=== PATIENT | female | born 1990 | race Caucasian/White ===

== ENCOUNTER 2016-07-19 07:43 | Observation (INO) ==
[2016-07-19] MEDS ORDERED: Naloxone 0.4 MG/ML INJ IVP PRN ×3 (09:52→17:20)
[2016-07-19] MEDS ORDERED: Ondansetron 4 MG/2 ML VIAL IVP PRN ×3 (09:52→17:20)
[2016-07-19] MEDS ORDERED: cefOXitin 2,000 MG in D5% in Water (Mini-Bag+) 100 ML IVPB ONE ×2 (09:56→16:23)
[2016-07-19] MEDS ORDERED: *HR* HYDROmorphone (PF) 1 MG/ML SYRINGE IVP PRN ×4 (09:58→17:20)
[2016-07-19] MEDS ORDERED: *HR* OxyCODONE/APAP 5/325 TABLET PO PRN ×3 (09:58→17:20)
[2016-07-19] MEDS ORDERED: 0.9 % Sodium Chloride 1,000 ML IVC SCH ×2 (10:00→16:23)
--- NOTE | 2016-07-19 10:16 | Event Note ---
Date of Encounter: 07/19/16 Time of Encounter: 10:14 Patient is a direct admission for symptomatic cholelithiasis. Please see ECW History and Physical. Copy placed in the patients folder at the desk and a copy placed to be scanned into medical records.
[2016-07-19 10:17] LABS: Basophils # 0.1 K/mcL (0.0-0.2); Basophils % 0.7 %; Eosinophils # 0.3 K/mcL (0.0-0.6); Eosinophils % 3.7 %; Hematocrit 36.2 % (35.3-44.9); Hemoglobin 12.1 g/dL (11.5-15.4); Immature Granulocytes % 0.3 % (0-4); Lymphocytes # 2.4 K/mcL (0.6-4.6); Lymphocytes % 35.8 %; Mean Corpuscular HGB Conc 33.4 g/dL (31.6-35.5); Mean Corpuscular Hemoglobin 30.7 pg (28.0-33.3); Mean Corpuscular Volume 91.9 fL (83.0-100.0); Mean Platelet Volume 9.3 fL (9.4-12.4); Monocytes # 0.4 K/mcL (0.0-1.3); Monocytes % 6.4 %; Platelet Count 237 K/mcL (140-400); Red Blood Count 3.94 M/mcL (3.82-4.97); Segmented Neutrophils % 53.1 %
[2016-07-19 10:21] LABS: Neutrophils # 3.6 K/mcL (1.6-8.9)
[2016-07-19 10:30] LABS: Alanine Aminotransferase 24 Units/L (0-55); Albumin 3.3 g/dL (3.5-5.0); Albumin/Globulin Ratio 1.1 (1.1-2.2); Alkaline Phosphatase 40 Units/L (38-126); Aspartate Amino Transferase 28 Units/L (5-34); BUN/Creatinine Ratio 18 (6-26); Bilirubin,Total 0.3 mg/dL (0.2-1.2); Blood Urea Nitrogen 14 mg/dL (7-20); Calcium 8.5 mg/dL (8.6-10.8); Carbon Dioxide 26 mEq/L (19-29); Chloride 106 mEq/L (98-109); Globulin 3.1 g/dL (2.4-3.5); Glucose 85 mg/dL (70-99); Osmolality,Calculated 288 (280-300); Potassium 3.9 mEq/L (3.5-4.5); Sodium 139 mEq/L (136-145); Total Protein 6.4 g/dL (6.0-8.3); eGFR For African Americans > 60 (> 60); eGFR For Non-African Americans > 60 (> 60)
--- NOTE | 2016-07-19 14:07 | Anesthesia Evaluation PreOp ---
Date of Encounter: 07/19/16 Time of Encounter: 14:05 - Past History Planned Operation: lap dolores Cardiac History: Denies any Significant Hx Pulmonary History: Denies Any Significant HX BOBBIN SORTER History: Denies Any Significant HX Other Medical History: Denies Any Significant HX Anesthesia History: No Prior Anesthetic Complications, Past Anesthesia (ankle surgery and T&A) : No Test: Negative Alcohol Use: none Drug use: none Medications and Allergies Acetaminophen [Tylenol] 1,000 mg PO Q6HR PRN 07/19/16 [History] Dextroamphetamine/Amphetamine [Adderall Xr 30 mg Capsule] 30 mg PO DAILY [History] Allergies No Known Allergies Allergy (Verified 07/19/16 08:35) - Meds/Allergy Pre-op Review Medications Reviewed: Yes Allergies Reviewed: Yes Beta Blockers on Current Med List: No Anesthesia Results - Labs 07/19/16 10:09 07/19/16 10:09 Anesthesia Exam Selected Entries 07/19/16 11:55 Temperature 98.0 F Pulse Rate 63 Respiratory Rate 18 Blood Pressure 104/67 O2 Sat by Pulse Oximetry 97 Weight: 77kg NPO (# of Hours): >8 Pain Scale: 2 Pain Scale Used: Numeric (1 - 10) - HEENT Pupil (Motor): EOMI Mallampati: II Teeth: Normal (has permanent partial upper and lower front) Denture Type: Upper: Partial (permanent), Lower: Partial Oral Opening: Greater than 3 - BOBBIN SORTER LOC: Oriented BOBBIN SORTER Motor: Normal RUE, Normal LUE, Normal RLE, Normal LLE, Normal Face BOBBIN SORTER Sensory: Normal: RUE, LUE, RLE, LLE, Face - Cardiac Rhythm: Regular Murmur: None - Pulmonary Breath Sounds: bilateral Clear Respiratory Effort: Symmetrical Anesthesia Assess/Plan ASA Score: 1 Modified [place] Scale for Level of Consciousness: Cooperative, oriented, and tranquil Anesthetic Plan: General Monitoring Plan: Standard Monitors Recovery Plan: PACU (Discussed GA with patient, questions answered and agrees to proceed.)
[2016-07-19] MEDS ORDERED: *HR* Midazolam HCl 2 MG/2 ML VIAL ONE (14:38)
[2016-07-19] MEDS ORDERED: Lidocaine -MPF 2% 2 ML VIAL ONE (14:38)
[2016-07-19] MEDS ORDERED: *HR* Rocuronium Bromide 50 MG/5 ML VIAL ONE (14:38)
[2016-07-19] MEDS ORDERED: *HR* FentaNYL (PF) 100 MCG/2 ML VIAL ONE (14:38)
[2016-07-19] MEDS ORDERED: Ondansetron 4 MG/2 ML VIAL ONE (14:38)
[2016-07-19] MEDS ORDERED: *HR* Propofol 200 MG/20 ML VIAL IVP ONE (14:38)
[2016-07-19] MEDS ORDERED: Dexamethasone 4 MG/ML VIAL ONE (14:38)
[2016-07-19] MEDS ORDERED: *HR* Succinylcholine 200 MG/10 ML VIAL IVP ONE (14:38)
[2016-07-19] MEDS ORDERED: Neostigmine Methylsulfate 3 MG/3 ML SYRINGE ONE (14:38)
[2016-07-19] MEDS ORDERED: *HR* Promethazine 25 MG/ML VIAL IVP PRN (14:40)
[2016-07-19] MEDS ORDERED: *HR* HYDROmorphone 2 MG/ML SYRINGE ONE (15:00)
--- NOTE | 2016-07-19 15:45 | Operative Note ---
Date of procedure: 07/19/16 Pre-op diagnosis: Biliary colic Post-op diagnosis: same Procedure: Laparoscopic Cholecystectomy with cholangiogram Anesthesia: KENZIE Surgeon: Harsh Robert Estimated blood loss (cc): 5 Condition: stable Disposition: same day Procedure in Detail: After informed consent this patient was taken the operating room placed supine position. After adequate sedation anesthesia the abdomen was prepped and draped. A proper timeout was performed. Two towel clamps are placed at the umbilicus and a Veres needle was inserted into the abdomen. A 5 mm incision was made at the umbilicus. A 12 mm incision was made in the subxiphoid region. Two 5 mm incisions were made in the right upper quadrant that were 4 finger breadths and 6 finger breadths below the costal margin. The gallbladder was identified, retracted anteriorly and cephalad, and the infundibulum was skeletonized. The cystic duct was easily identified and was dissected free. A ductotomy was created in the cystic duct. A taut catheter was placed within the cystic duct and clipped. A cholangiogram was performed. Contrast filled the cystic duct, common hepatic duct, hepatic radicles, and the distal common bile duct. There was flow of contrast into the duodenum. Once this was confirmed the clippers removed, the taut catheter was removed as well, and the cystic duct was clipped distally. The cystic duct was then transected with scissors. The gallbladder was resected off the liver surface. There was excellent hemostasis. The gallbladder was then retrieved through the 12 mm cannula site. At this point the abdomen was suctioned dry and the pneumoperitoneum was then evacuated. All ports were removed. The 12 mm cannula site was closed with an 0 Vicryl suture in [id number] fashion. The skin was closed with 4-0 Vicryl suture. Dermabond was placed as well. All instrument counts and needle counts are correct in the operation. The patient tolerated the procedure well and was transferred to the PACU in stable condition.
--- NOTE | 2016-07-19 16:05 | Anesthesia Evaluation Post Op ---
Date of Encounter: 07/19/16 Time of Encounter: 16:05 - Vital Signs Vital Signs: Last Vital Signs Temp 97.9 F 07/19/16 15:55 Pulse 55 07/19/16 15:45 Resp 14 07/19/16 15:55 BP 107/68 07/19/16 15:55 Pulse Ox 96 07/19/16 15:55 - Lungs Lungs: Clear Ascult./Percussion - Airway Airway: Non-obstructed - Cardiovascular Regular Rate - Mental Status Mental Status: Alert & Oriented, Answers Appropriately - Pain Pain Scale: 3 - Nausea Vomiting Nausea Vomiting: Not Present - Hydration Hydration: NPO - Discharge PostOp Status: Transfer Patient to floor
--- NOTE | 2016-07-19 16:19 | Discharge Summary ---
Date of Encounter: 07/19/16 Time of Encounter: 16:16 - Discharge Diagnosis (1) Symptomatic cholelithiasis Priority: Primary Status: Resolved - Discharge Medications Prescriptions: OxyCODONE/APAP 5/325 [Percocet 5/325 MG] 1 each PO Q6HR PRN #30 tablet PRN Reason: Pain Docusate Sodium [Colace] 100 mg PO BID #30 capsule Home Medications: Acetaminophen [Tylenol] 1,000 mg PO Q6HR PRN 07/19/16 [History] Dextroamphetamine/Amphetamine [Adderall Xr 30 mg Capsule] 30 mg PO DAILY [History] Docusate Sodium [Colace] 100 mg PO BID #30 capsule 07/19/16 [Rx] OxyCODONE/APAP 5/325 [Percocet 5/325 MG] 1 each PO Q6HR PRN #30 tablet 07/19/16 [Rx] Allergies/Adverse Reactions: Allergies No Known Allergies Allergy (Verified 07/19/16 08:35) General Surgery Exam Initial Vital Signs Temp Pulse Resp BP Pulse Ox 97.8 F 64 18 100/63 98 07/19/16 09:23 07/19/16 09:23 07/19/16 09:23 07/19/16 09:23 07/19/16 09:23 Date of admission: 07/19/16 07:52 Primary care physician: Hussain Menendez, Discharging clinician: Harsh Berrios) Anticipated date of discharge: 07/19/16 - Patient Status Disposition: Home, Self-Care Condition: Good Overall status at discharge: patient is progressing back to baseline - Discharge Instructions Follow Up With: Hussain Menendez DO [Primary Care Provider] - Shanon Berrios CNP [Advanced Practice Nurse] - 08/06/16 10:45 am (Surgery follow-up) Additional Instructions: #1 may shower, no tub bath for 2 weeks #2 wash incisions with soap and water and pat dry daily #3 no lifting, pushing, pulling more than 15 pounds for the next 2 weeks #4 no driving until off narcotics for 24 hours and able to safely react in the car #5 may climb stairs - Diet and Activity Activity: other (See additional instructions above) Diet: advance to your usual diet - Hospital Course Hospital course: Ms. Georges is a 26 year old female presented to the hospital with complaints of abdominal pain. She has been seen and worked up by Dr. Robert as an outpatient for recurrent symptomatic cholelithiasis. She was admitted to the hospital for cholecystectomy with Dr. Robert. We will begin discharge planning to home when the patient meets criteria including vital signs are stable and afebrile, tolerating liquids without nausea or vomiting, pain is well-controlled , voiding and ambulating without difficulty. We will plan for outpatient follow -up in the next 10-14 days. - Time Spent with Patient Total time spent providing and/or coordinating discharge services: Less than 30 minutes Labs on day of discharge: Labs from last 24 hours 07/19/16 07/19/16 07/19/16 11:56 10:09 10:09 WBC RBC Hgb Hct MCV MCH MCHC RDW Plt Count MPV Immature Gran % Seg Neutrophils % Lymphocytes % Monocytes % Eosinophils % Basophils % Neutrophils # Lymphocytes # Monocytes # Eosinophils # Basophils # Sodium 139 Potassium 3.9 Chloride 106 Carbon Dioxide 26 BUN 14 Creatinine 0.77 Est GFR ( Amer) > 60 Est GFR (Non-Af Amer) > 60 BUN/Creatinine Ratio 18 Glucose 85 POC Glucose 89 Calculated Osmolality 288 Calcium 8.5 L Total Bilirubin 0.3 AST 28 ALT 24 Alkaline Phosphatase 40 Serum Total Protein 6.4 Albumin 3.3 L Globulin 3.1 Albumin/Globulin Ratio 1.1 Serum , Qual Negative 07/19/16 10:09 WBC 6.7 RBC 3.94 Hgb 12.1 Hct 36.2 MCV 91.9 MCH 30.7 MCHC 33.4 RDW 12.0 Plt Count 237 MPV 9.3 L Immature Gran % 0.3 Seg Neutrophils % 53.1 Lymphocytes % 35.8 Monocytes % 6.4 Eosinophils % 3.7 Basophils % 0.7 Neutrophils # 3.6 Lymphocytes # 2.4 Monocytes # 0.4 Eosinophils # 0.3 Basophils # 0.1 Sodium Potassium Chloride Carbon Dioxide BUN Creatinine Est GFR ( Amer) Est GFR (Non-Af Amer) BUN/Creatinine Ratio Glucose POC Glucose Calculated Osmolality Calcium Total Bilirubin AST ALT Alkaline Phosphatase Serum Total Protein Albumin Globulin Albumin/Globulin Ratio Serum , Qual - Impressions ITS Impressions Cholangiogram,Operative 07/19/16 00:00 IMPRESSION: Normal intraoperative cholangiogram. D/ / Ronnie Marcelino MD / Ronnie Marcelino MD Interpreting Provider: Ronnie Marcelino MD - Attending Attestation I examined this patient and my medical decision-making was reviewed with the DRY PRESS OPERATOR HELPER/PA/Advanced Practice Nurse/Resident Physician. I agree with the documented findings, disposition and treatment plan as described except to the extent set forth below.
[2016-07-19] MEDS ORDERED: 0.9 % Sodium Chloride 500 ML IVC SCH (17:20)
[2016-07-19 19:36] VITALS: BP 100/64
[2016-07-20] MEDS ORDERED: AMPHETAMINE PO SCH ×2 (09:00)
[2016-07-20] MEDS ORDERED: DEXTROAMPHETAMINE PO SCH ×2 (09:00)
== END 2016-07-19 19:30 | disposition home or self-care (01) ==
LOC: 3ANU
PROVIDERS: ADMIT Nurse Practitioner Family; ATTEND Surgery